=== PATIENT | male | born 1985 | race Caucasian/White ===

== ENCOUNTER 2022-04-12 08:19 | Emergency (ER) | payer OTHER, SELFPAY ==
[2022-04-12 08:36] VITALS: BP 150/93; PULSE 74; RESP 18; TEMP 37.3; O2SAT 98
--- NOTE | 2022-04-12 08:57 | ED.GENADULT ---
HPI - General Adult General Chief complaint: Extremity Problem,Nontraumatic Stated complaint: COUGH/STIFF NECK/R SHOULDER PAIN Time Seen by Provider: 04/12/22 08:50 Source: patient Mode of arrival: ambulatory Limitations: no limitations History of Present Illness HPI narrative: Patient presents today complaining of a 3 week history of pain to the right neck radiating to his shoulder and down arm, that is especially painful when he moves or coughs. He does report intermittent tingling to the right 2nd and 3rd finger with shooting pain. Pain started when he woke up 1 day. Denies any injury or trauma, or heavy lifting. He has been taking Tylenol with mild relief. He currently rates his pain 4/10, which increases to 8/10 with coughing or movement. Related Data Home Medications Medication Instructions Recorded Confirmed bupropion HCl 150 mg 24 hr tablet, 150 mg PO DAILY 04/12/22 04/12/22 extended release escitalopram oxalate 10 mg tablet 10 mg PO DAILY 04/12/22 04/12/22 Allergies Allergy/AdvReac Type Severity Reaction Status Date / Time No Known Allergies Allergy Unverified 04/12/22 08:38 Review of Systems Review of Systems: CONSTITUTIONAL: Denies body aches, fever, chills, or sweats. EYES: Denies visual changes, redness, or discharge. ENT: Denies rhinorrhea, congestion, sore throat, or otalgia. CARDIOVASCULAR: Denies chest pain, palpitations, or edema. RESPIRATORY: Denies dyspnea.+ cough GASTROINTESTINAL: Denies abdominal pain, nausea, vomiting, or diarrhea. GENITOURINARY: Denies dysuria or hematuria. SKIN: Denies rash, itching, or wounds. MUSCULOSKELETAL: + right neck and shoulder pain NEUROLOGIC: Denies headache, numbness, or weakness.+ tingling to the right fingers PSYCH: Denies depression or anxiety. PMFSH Comments At time of signature, I have reviewed and agree with nursing past medical, surgical, social and family history unless otherwise noted. Please see nursing chart for further information. There is no relevant family history pertinent to the presenting complaint Exam Narrative: GENERAL: Well-appearing, well-nourished, and in mild pain distress. HEAD: Normocephalic, atraumatic. EYES: EOMI. No redness or drainage. Conjunctivae normal. ENT: Mucous membranes pink and moist. Nares clear. No rhinorrhea. TMs normal bilaterally. Throat normal. Uvula midline. NECK: Normal AROM. Supple. No lymphadenopathy. No tenderness to the midline cervical spine, or right or left paraspinal muscles. CHEST: No respiratory distress. Clear to auscultation. HEART: Regular rate and rhythm. No murmur appreciated. Normal peripheral pulses. MUSCULOSKELETAL: Patient has tenderness to the generalized right trapezius. Palpation of the trapezius reproduces shooting pain down the arm to the hand, and causes tingling to the right 2nd and 3rd fingers. Distal sensation is intact in all 5 fingers. Capillary refill normal. Radial pulses normal. 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 Full range of motion of the shoulder with increased pain. He EXTREMITIES: Normal range of motion. No edema. SKIN: Warm, dry, no rash. Capillary refill normal. Normal skin turgor. NEURO: No focal deficits. Alert and oriented x3. Gait steady. PSYCH: Normal affect. No signs of depression or anxiety. Course Course Level of Care: Express Care Visit Vital Signs Vital signs: Vital Signs Temperature 99.2 F 04/12/22 08:36 Pulse Rate 74 04/12/22 08:36 Respiratory Rate 18 04/12/22 08:36 Blood Pressure 150/93 H 04/12/22 08:36 Pulse Oximetry 98 04/12/22 08:36 Oxygen Delivery Room Air 04/12/22 08:36 Temperature 99.2 F 04/12/22 08:36 Pulse Rate 74 04/12/22 08:36 Respiratory Rate 18 04/12/22 08:36 Blood Pressure 150/93 H 04/12/22 08:36 Pulse Oximetry 98 04/12/22 08:36 Oxygen Delivery Room Air 04/12/22 08:36 Reviewed. Pt has been instructed to follow up with his PCP regarding his elevated blood pressure today. Medical
== END 2022-04-12 09:05 | disposition home or self-care (01) ==
PROVIDERS: Emergency Provider Nurse Practitioner
DX: M54.12 Radiculopathy, cervical region (principal); S46.911A Strain of unspecified muscle, fascia and tendon at shoulder and upper arm level, right arm, initial encounter; X58.XXXA Exposure to other specified factors, initial encounter; F41.9 Anxiety disorder, unspecified; F32.A Depression, unspecified
CPT/HCPCS: 99213; G0463

== ENCOUNTER 2022-05-17 08:33 | Emergency (ER) | payer OTHER, SELFPAY ==
[2022-05-17 08:35] VITALS: BP 144/87; PULSE 77; RESP 16; TEMP 36.6; O2SAT 99
--- NOTE | 2022-05-17 08:38 | ED.EAR ---
HPI - Ear Problem General Chief complaint: Ear Stated complaint: EAR Time Seen by Provider: 05/17/22 08:38 Source: patient Mode of arrival: ambulatory Limitations: no limitations History of Present Illness HPI Narrative: 36-year-old male presented for complaint of right ear pain for about 1 week. Reports for about 2-3 weeks he has had the sensation of fluid in ear with associated sinus congestion. Endorses mild tinnitus, nausea, dizziness. Not taking any meds for symptoms. Denies sob, wheezing, vomiting, fever or chills. MD Complaint: ear pain Related Data Home Medications Medication Instructions Recorded Confirmed bupropion HCl 150 mg 24 hr tablet, 150 mg PO DAILY 04/12/22 04/12/22 extended release escitalopram oxalate 10 mg tablet 10 mg PO DAILY 04/12/22 04/12/22 Allergies Allergy/AdvReac Type Severity Reaction Status Date / Time No Known Allergies Allergy Verified 05/17/22 08:48 Review of Systems Review of Systems: per HPI All systems reviewed & are unremarkable except as noted in HPI and below PMFSH Comments At time of signature, agree with nursing past medical, surgical, social and family history. There is no relevant family history pertinent to the presenting complaint Exam Narrative: GENERAL: Well-appearing EYES: PERRLA, conjunctivae clear ENT: Nares clear. Mucous membranes moist. Left TM pearly carrillo with dull light reflex; Right TM erythematous, bulging with purulent effusion; no tragal tenderness. Oropharynx not erythematous without lesions. CHEST: Clear to auscultation, breath sounds equal. HEART: Regular rate and rhythm. No murmur heard. SKIN: Warm, dry, no rash. NEURO: Alert and oriented x3. Course Course Emergency Course: Patient is aware of diagnosis, understands and agrees to treatment plan. Anticipatory guidance given. Patient agrees to follow-up as directed and is aware of reasons to seek care at the emergency department. Portions of this record may have been created with voice recognition software Level of Care: Express Care Visit Vital Signs Vital signs: Vital Signs Temperature 98 F 05/17/22 08:35 Pulse Rate 77 05/17/22 08:35 Respiratory Rate 16 05/17/22 08:35 Blood Pressure 144/87 H 05/17/22 08:35 Pulse Oximetry 99 05/17/22 08:35 Temperature 98 F 05/17/22 08:35 Pulse Rate 77 05/17/22 08:35 Respiratory Rate 16 05/17/22 08:35 Blood Pressure 144/87 H 05/17/22 08:35 Pulse Oximetry 99 05/17/22 08:35 Reviewed Medical Decision Making MDM Narrative Medical decision making narrative: Advised supportive measures and signs/symptoms to go to the ER. Patient is appropriate for outpatient treatment and follow-up. Differential Diagnosis Differential Diagnosis: Coronavirus, strep pharyngitis, allergic rhinitis, upper respiratory tract infection, sinusitis, rhinosinusitis, nasopharyngitis, viral pharyngitis, otitis media, otitis externa, eustachian tube dysfunction, foreign body, cerumen impaction. Vital Signs Vital Signs: Vital Signs Temperature 98 F 05/17/22 08:35 Pulse Rate 77 05/17/22 08:35 Respiratory Rate 16 05/17/22 08:35 Blood Pressure 144/87 H 05/17/22 08:35 Pulse Oximetry 99 05/17/22 08:35 Temperature 98 F 05/17/22 08:35 Pulse Rate 77 05/17/22 08:35 Respiratory Rate 16 05/17/22 08:35 Blood Pressure 144/87 H 05/17/22 08:35 Pulse Oximetry 99 05/17/22 08:35 Discharge Plan Discharge Clinical Impression: Otitis media Qualifiers: Otitis media type: suppurative Chronicity: acute Laterality: right Recurrence: non-recurrent Spontaneous tympanic membrane rupture: without spontaneous rupture Qualified Code(s): H66.001 - Acute suppurative otitis media without spontaneous rupture of ear drum, right ear Patient Disposition: Home, Self-Care Condition: Stable Instructions: Antibiotic Form, Ear Infection (ED) Additional Instructions: Take antibiotics as directed. Recommend antihistamine suc
== END 2022-05-17 08:50 | disposition home or self-care (01) ==
LOC: EXPGOSH 09:48
PROVIDERS: Emergency Provider Nurse Practitioner Family
DX: H66.001 Acute suppurative otitis media without spontaneous rupture of ear drum, right ear (principal)
CPT/HCPCS: 99203; G0463

== ENCOUNTER 2024-03-04 10:23 | Emergency (ER) | payer OTHER, SELFPAY ==
[2024-03-04 10:36] VITALS: BP 126/89; PULSE 56; RESP 20; TEMP 36.4; O2SAT 97
--- NOTE | 2024-03-04 11:45 | ED.EYEPROB ---
HPI - Eye Problem General Chief complaint: Eye Problems Stated complaint: Right eye/sinus infection Source: patient Mode of arrival: ambulatory Limitations: no limitations History of Present Illness HPI Narrative: 38-year-old male presented for complaint of right eye irritation and drainage over the last 3-4 days. He also reports nasal congestion and sinus pressure over the right eye for over one week. Denies eye injury. States he cleaned mold at home and may have had particles into the eye. Denies vision changes, headache, dizziness, n/v/d/f/c. chief complaint: eye pain Related Data Home Medications Medication Instructions Recorded Confirmed bupropion HCl 150 mg 24 hr tablet, 150 mg PO DAILY 04/12/22 03/04/24 extended release escitalopram oxalate 10 mg tablet 10 mg PO DAILY 04/12/22 03/04/24 Allergies Allergy/AdvReac Type Severity Reaction Status Date / Time No Known Allergies Allergy Verified 03/04/24 11:06 Review of Systems Review of Systems: CONSTITUTIONAL: Denies body aches, fever, chills EYES:Endorses drainage, redness and pain to right eye, photophobia Denies visual changes FB sensation ENT: Denies rhinorrhea, congestion, sore throat, or otalgia. CARDIOVASCULAR: Denies chest pain, palpitations RESPIRATORY: Denies cough or dyspnea. SKIN: Denies rash, itching, or wounds. MUSCULOSKELETAL: Denies back pain, joint pain, or myalgia. NEUROLOGIC: Denies headache All systems reviewed & are unremarkable except as noted in HPI and below PMFSH Comments At time of signature, I have reviewed and agree with nursing past medical, surgical, social and family history unless otherwise noted. Please see nursing chart for further information. There is no relevant family history pertinent to the presenting complaint Exam Narrative: GENERAL: Well-appearing HEAD: Normocephalic, atraumatic. EYES: Right conjunctival injection with thick white discharge. no eye lid swelling/redness. PERRLA EOMI. Lid eversion shows no FB. ENT: Mucous membranes pink and moist. Nasal congestion. TMs normal bilaterally. Throat normal. Uvula midline. CHEST: Unlabored, even. SKIN: Warm, dry, no rash. Normal skin turgor. NEURO: No focal deficits. Alert and oriented x3 PSYCH: Normal affect. Course Course Emergency Course: Patient is aware of diagnosis, understands and agrees to treatment plan. Anticipatory guidance given. Patient agrees to follow-up as directed and is aware of reasons to seek care at the emergency department. Portions of this record may have been created with voice recognition software Level of Care: Express Care Visit Vital Signs Vital signs: Vital Signs Temperature 97.6 F 03/04/24 10:36 Pulse Rate 56 L 03/04/24 10:36 Respiratory Rate 20 03/04/24 10:36 Blood Pressure 126/89 03/04/24 10:36 Pulse Oximetry 97 03/04/24 10:36 Oxygen Delivery Room Air 03/04/24 10:36 Temperature 97.6 F 03/04/24 10:36 Pulse Rate 56 L 03/04/24 10:36 Respiratory Rate 20 03/04/24 10:36 Blood Pressure 126/89 03/04/24 10:36 Pulse Oximetry 97 03/04/24 10:36 Oxygen Delivery Room Air 03/04/24 10:36 MDM - Eye Problem MDM Narrative Medical decision making narrative: Discussed physical exam findings c/w sinusitis, will cover for bacterial conjunctivitis. Advised supportive measures and signs/symptoms to go to the ER. Pt is appropriate for outpt treatment and f/u. Differential Diagnosis Differential diagnosis: Likely corneal abrasion, conjunctivitis, acute iritis and other Discharge Plan Discharge Clinical Impression: Sinusitis Patient Disposition: Home, Self-Care Condition: Stable Instructions: Antibiotic Form, Rhinosinusitis (ED), Conjunctivitis (ED) Additional Instructions: Recommend Flonase spray and Zyrtec (or Claritin/Cynthia) If you have nasal congestion Symptomatic treatment includes: rest, fluids, and increase humidity of the air at home. A
== END 2024-03-04 12:05 | disposition home or self-care (01) ==
PROVIDERS: Emergency Provider Nurse Practitioner Family; PCP Nurse Practitioner Family
DX: J32.9 Chronic sinusitis, unspecified (principal); F41.9 Anxiety disorder, unspecified; F32.A Depression, unspecified
CPT/HCPCS: 99213; A9270; G0463